=== PATIENT | female | born 1935 | race Caucasian/White ===

== ENCOUNTER 2018-02-14 06:50 | Inpatient (IN) | payer OTHER ==
[~2018-02-14] VITALS: Ht 149.9 cm; Wt 56.8 kg
[~2018-02-14 06:50] MED LIST: ALEN70TA55 OR; AMIO200T33 OR; LOSA100T33 OR; SIMV-13 OR; VERA120T6 OR; WARF2TAB49 OR
[2018-02-14 07:29] LABS: Basophils # (auto) 0.1 uL; Basophils % (auto) 0.8 % (0.0-2.0); Eosinophils # (auto) 0.2 uL; Eosinophils % (auto) 2.2 % (0.0-7.0); Hematocrit 35.2 % (36.0-46.0); Hemoglobin 11.9 g/dL (12.2-16.2); Lymphocytes % (auto) 11.7 % (10.0-50.0); Mean Corpuscular Hemoglobin 28.9 pg (28.0-32.0); Mean Corpuscular Hgb Conc. 33.9 g/dL (32.0-36.0); Mean Corpuscular Volume 85.4 fL (80.0-100.0); Monocytes # (auto) 0.7 uL; Monocytes % (auto) 8.4 % (0.0-12.0); Neutrophils # (auto) 6.9 uL; Neutrophils % (auto) 76.9 % (37.0-80.0); Nucleated Red Blood Cells % 0.1 %; Platelet Count (auto) 184 10^3/uL (140-450); Red Blood Cells 4.12 10^6/uL (4.0-5.20); Red Cell Distribution Width 15.6 % (11.8-14.3); White Blood Cell 8.9 10^3/uL (4.4-10.8)
[2018-02-14 07:45] LABS: INR 2.11 (0.9-1.15); Partial Thromboplastin Time 38.2 sec (23.78-33.04); Prothrombin Time 21.6 sec (9.27-12.13)
[2018-02-14 08:06] LABS: Albumin 3.3 g/dL (3.4-5.0); Alkaline Phosphatase 77 U/L (45-117); Anion Gap 9 (5-15); Aspartate Aminotransferase 19 U/L (15-37); BUN/Creatinine Ratio 22.9; Bilirubin, Total 0.5 mg/dL (0.2-1.0); Blood Urea Nitrogen 36 mg/dL (7-18); Calcium 8.8 mg/dL (8.5-10.1); Carbon Dioxide 26 mmol/L (21-32); Chloride 105 mmol/L (98-107); GFR African American 40 mL/min; GFR Non-African American 33 mL/min; Glucose 119 mg/dL (74-106); Potassium 3.4 mmol/L (3.5-5.1); Sodium 140 mmol/L (136-145); Total Protein 7.5 g/dL (6.4-8.2)
[2018-02-14 08:10] LABS: Alanine Aminotransferase 23 U/L (13-56)
[2018-02-14] MEDS ORDERED: SODIUM CHLORIDE 0.9% 1,000 ML IV SCH (09:04)
[2018-02-14] MEDS ORDERED: ACETAMINOPHEN 500 MG TAB PO PRN (09:15)
[2018-02-14] MEDS ORDERED: PROMETHAZINE HCL 25 MG/ML 1ML IV PRN (09:15)
[2018-02-14] MEDS ORDERED: TEMAZEPAM 15 MG CAP PO PRN (09:15)
[2018-02-14] MEDS ORDERED: DEXTROSE (50%) 50ML SYRG IV PRN (09:15)
[2018-02-14] MEDS ORDERED: traMADol HCL 50 MG TAB PO PRN (09:15)
[2018-02-14] MEDS ORDERED: LACTULOSE 20Gm/30ML SOLN PO PRN (09:15)
[2018-02-14] MEDS ORDERED: MORPHINE SULF INJ 2 MG/ML SYRINGE 1ML IV PRN ×2 (09:15)
[2018-02-14] MEDS ORDERED: LORazepam 0.5 MG TAB PO PRN (09:15)
[2018-02-14] MEDS ORDERED: NITROGLYCERIN 0.4 MG SL TAB SL PRN (09:15)
[2018-02-14 09:31] VITALS: BP 114/56
[2018-02-14] MEDS ORDERED: ASPirin 81 mg TAB PO SCH (10:00)
[2018-02-14] MEDS ORDERED: LOSARTAN POTASSIUM OR SCH (10:00)
[2018-02-14] MEDS ORDERED: METOPROLOL TARTRATE 25 MG TAB PO SCH (10:00)
[2018-02-14] MEDS ORDERED: VERAPAMIL HCL 120 MG OR SCH (10:00)
[2018-02-14] MEDS ORDERED: HYDROC OR SCH (10:00)
[2018-02-14] MEDS ORDERED: AMIODARONE HCL 200 MG TAB PO SCH (10:00)
[2018-02-14] MEDS ORDERED: NITROGLYCERIN 0.2MG/HR TOPICAL PATCH TD SCH (10:00)
[2018-02-14] MEDS ORDERED: PANTOPRAZOLE 40 MG TAB PO SCH (10:00)
[2018-02-14] MEDS ORDERED: POTASSIUM CHL 20 Meq TABLET PO ONE (10:30)
[2018-02-14] MEDS ORDERED: FURO20TA3 PO (10:45)
[2018-02-14] MEDS ORDERED: MECL-87 PO (10:45)
[2018-02-14] MEDS ORDERED: CHOL100055 PO (10:45)
[2018-02-14] MEDS ORDERED: LOSA100T27 PO (10:45)
[2018-02-14] MEDS ORDERED: DIGO1TAB35 PO (10:45)
[2018-02-14] MEDS ORDERED: GLIP2.5T28 PO (10:45)
[2018-02-14] MEDS ORDERED: METO-158 PO (10:45)
[2018-02-14] MEDS ORDERED: ATOR1TAB PO (10:45)
[2018-02-14] MEDS ORDERED: AMLO5TAB2 PO (10:45)
[2018-02-14] MEDS: InsuLIN REG 1unit/0.01ml Soln (100units/ml) SC SCH ×2 (11:30→17:00)
[2018-02-14] MEDS: ACCU-CHEK COMFORT CURVE STRIP VI SCH ×2 (11:55→17:46)
[2018-02-14 13:00] VITALS: BP 124/65
[2018-02-14] MEDS ORDERED: WARFARIN SODIUM 2 MG TAB PO ONE (17:00)
[2018-02-14 17:25] VITALS: BP 129/59
[2018-02-14 17:56] VITALS: BP 114/56
[2018-02-14] MEDS ORDERED: ATORVASTATIN 20 MG TAB PO SCH (22:00)
[2018-02-14] MEDS ORDERED: PATIENTS OWN MEDICATION (Simvastatin 40 MG) OR SCH (22:00)
== END 2018-02-14 19:15 | disposition home health service (06) | DRG 313 ==
LOC: EDBD 06:50 → ER 06:50 → TELE 06:51 → TELE-WESTW 09:51
PROVIDERS: ADMIT Internal Medicine; ATTEND Internal Medicine
DX: R07.89 Other chest pain (principal); I13.0 Hypertensive heart and chronic kidney disease with heart failure and stage 1 through stage 4 chronic kidney disease, or unspecified chronic kidney disease; D63.8 Anemia in other chronic diseases classified elsewhere; E11.21 Type 2 diabetes mellitus with diabetic nephropathy; E11.22 Type 2 diabetes mellitus with diabetic chronic kidney disease; E78.5 Hyperlipidemia, unspecified; I50.9 Heart failure, unspecified; E87.6 Hypokalemia; I48.0 Paroxysmal atrial fibrillation; N18.3 Chronic kidney disease, stage 3 (moderate); Z80.0 Family history of malignant neoplasm of digestive organs; Z80.7 Family history of other malignant neoplasms of lymphoid, hematopoietic and related tissues; Z82.0 Family history of epilepsy and other diseases of the nervous system; Z82.3 Family history of stroke; I25.2 Old myocardial infarction; Z95.0 Presence of cardiac pacemaker; Z98.49 Cataract extraction status, unspecified eye; Z90.49 Acquired absence of other specified parts of digestive tract; Z79.899 Other long term (current) drug therapy; Z79.01 Long term (current) use of anticoagulants; Z79.82 Long term (current) use of aspirin
CPT/HCPCS: 36415; 71045; 80053; 82550; 82962; 83036; 83880; 84443; 84484; 85025; 85610; 85652; 85730; 86141; 93005; 93306

== ENCOUNTER → 2020-04-27 | Day surgery (SDC) | payer OTHER ==
[~2020-04-27] VITALS: Ht 149.9 cm; Wt 53.1 kg
[~2020-04-27] MED LIST changes: +ACCU-CHEK COMFORT CURVE STRIP VI ONE; -ALEN70TA55 OR; -AMIO200T33 OR; +AMLO5TAB15 PO; +ATOR1TAB PO; +BACITRACIN INJ 50000 UNIT VIAL ONE; +BUPIVACAINE 0.25% INJ 50ML VIAL ONE; +CHOL100055 PO; +CLON0.1T PO; +COEN200C11 PO; +DILT60CA PO; +DexAMETHasone SOD PHOS 10MG/1ML VIAL INJ ONE; +ETOMIDATE (2MG/ML) 20ML VIAL IV ONE; +GLIP2.5T28 PO; +GLYCOPYRROLATE 0.2 MG/ML 1ML VIAL ONE; +HEPARIN SODIUM (PORCINE) 5000 UNITS/ML 1ML VIAL ONE; +KETOROLAC TROMETH 30 MG/ML 1ML VIAL IV ONE; +LIDOCAINE 2% (LOCAL ANESTH.) PF 5ml SDV ONE; +LIDOCAINE W/ EPINEPHRINE 1 % INJ 30ML ONE; -LOSA100T33 OR; +LOSA100T33 PO; +METO-158 PO; +MIDAZOLAM HCL 1MG/1ML-2 ML VIAL ONE; +MORPHINE SULFATE 4 MG/ML SYR/VIAL IV PRN; +NALOXONE HCL 0.4 MG/ML VIAL ONE; +NEOSTIGMINE 1 MG/ML INJ (10mg/10ML VIAL) ONE; +NITR0.4S29 SL; +ONDANSETRON HCL 4 MG/2 ML VIAL IV PRN; +ONDANSETRON HCL 4 MG/2 ML VIAL ONE; +PROPOFOL 10 MG/ML 20 ML IV ONE; +ROCURONIUM 10MG/ML 10ML VIAL IV ONE; -SIMV-13 OR; -VERA120T6 OR; +ceFAZolin 1GM/50ML 100 ML IV ONE; +fentaNYL CITRATE 100 MCG/2 ML VL ONE
[2020-04-27 13:00] VITALS: BP 159/74
== END | disposition home or self-care (01) ==
LOC: SUR 06:48
PROVIDERS: ATTEND Surgery
DX: K40.90 Unilateral inguinal hernia, without obstruction or gangrene, not specified as recurrent (principal); I48.91 Unspecified atrial fibrillation; E11.22 Type 2 diabetes mellitus with diabetic chronic kidney disease; I12.9 Hypertensive chronic kidney disease with stage 1 through stage 4 chronic kidney disease, or unspecified chronic kidney disease; N18.9 Chronic kidney disease, unspecified; Z88.8 Allergy status to other drugs, medicaments and biological substances; Z96.89 Presence of other specified functional implants; Z95.810 Presence of automatic (implantable) cardiac defibrillator; Z79.899 Other long term (current) drug therapy; Z98.890 Other specified postprocedural states; Z20.828 Contact with and (suspected) exposure to other viral communicable diseases
CPT/HCPCS: 49505; 82962; C1781; J0690; J1100; J1644; J1885; J2001; J2250; J2310; J2405; J2704; J3010; J3490; U0003

== ENCOUNTER 2022-09-11 11:42 | Inpatient (IN) | payer OTHER ==
[~2022-09-11] VITALS: Ht 149.9 cm; Wt 59.8 kg
[~2022-09-11 11:42] MED LIST changes: -ACCU-CHEK COMFORT CURVE STRIP VI ONE; +AMLO-489 PO; -AMLO5TAB15 PO; +ATOR-47 PO; -ATOR1TAB PO; -BACITRACIN INJ 50000 UNIT VIAL ONE; -BUPIVACAINE 0.25% INJ 50ML VIAL ONE; -DexAMETHasone SOD PHOS 10MG/1ML VIAL INJ ONE; -ETOMIDATE (2MG/ML) 20ML VIAL IV ONE; -GLYCOPYRROLATE 0.2 MG/ML 1ML VIAL ONE; -HEPARIN SODIUM (PORCINE) 5000 UNITS/ML 1ML VIAL ONE; -KETOROLAC TROMETH 30 MG/ML 1ML VIAL IV ONE; -LIDOCAINE 2% (LOCAL ANESTH.) PF 5ml SDV ONE; -LIDOCAINE W/ EPINEPHRINE 1 % INJ 30ML ONE; -MIDAZOLAM HCL 1MG/1ML-2 ML VIAL ONE; -MORPHINE SULFATE 4 MG/ML SYR/VIAL IV PRN; -NALOXONE HCL 0.4 MG/ML VIAL ONE; -NEOSTIGMINE 1 MG/ML INJ (10mg/10ML VIAL) ONE; -ONDANSETRON HCL 4 MG/2 ML VIAL IV PRN; -ONDANSETRON HCL 4 MG/2 ML VIAL ONE; -PROPOFOL 10 MG/ML 20 ML IV ONE; -ROCURONIUM 10MG/ML 10ML VIAL IV ONE; -ceFAZolin 1GM/50ML 100 ML IV ONE; -fentaNYL CITRATE 100 MCG/2 ML VL ONE
[2022-09-11] MEDS ORDERED: ACETAMINOPHEN 325 MG TAB PO ONE (13:30)
[2022-09-11 13:50] LABS: Basophils # (auto) 0 10 ^3/uL (0-0.2); Eosinophils # (auto) 0.1 10 ^3/uL (0-0.8); Mean Corpuscular Hemoglobin 26.2 pg (28.0-32.0); Monocytes # (auto) 0.7 10 ^3/uL (0-1.3); Monocytes % (auto) 6.7 % (0.0-12.0)
[2022-09-11 13:52] LABS: Basophils % (auto) 0.1 % (0.0-2.0); Eosinophils % (auto) 0.9 % (0.0-7.0); Hematocrit 39.1 % (36.0-46.0); Hemoglobin 12.7 g/dL (12.2-16.2); Lymphocytes % (auto) 9.1 % (10.0-50.0); Mean Corpuscular Hgb Conc. 32.5 g/dL (32.0-36.0); Mean Corpuscular Volume 80.6 fL (80.0-100.0); Neutrophils # (auto) 9.1 10 ^3/uL (1.6-8.6); Neutrophils % (auto) 83.2 % (37.0-80.0); Nucleated Red Blood Cells % 0.1 %; Red Blood Cells 4.86 10^6/uL (4.0-5.20); Red Cell Distribution Width 16.9 % (11.8-14.3); White Blood Cell 10.9 10^3/uL (4.4-10.8)
[2022-09-11 14:06] LABS: INR 3.41 (0.9-1.15); Partial Thromboplastin Time 39.9 sec (24.6-33.4)
[2022-09-11 14:10] LABS: Albumin 3.4 g/dL (3.4-5.0); Calcium 9.4 mg/dL (8.5-10.1); Magnesium 2.1 mg/dL (1.6-2.6); Potassium 3.2 mmol/L (3.5-5.1)
[2022-09-11 14:14] LABS: Bilirubin, Total 0.3 mg/dL (0.2-1.0); Total Protein 7.4 g/dL (6.4-8.2)
[2022-09-11] MEDS ORDERED: ONDANSETRON HCL 4 MG/2 ML VIAL IV PRN (20:00)
[2022-09-11] MEDS ORDERED: DOCUSATE SOD 100 MG CAP PO PRN (20:00)
[2022-09-11] MEDS ORDERED: NITROGLYCERIN 0.4 MG SL TAB SL PRN (20:00)
[2022-09-11] MEDS ORDERED: SODIUM CHLORIDE 0.9% 1,000 ML IV ONE (20:00)
[2022-09-11] MEDS ORDERED: MORPHINE SULFATE INJ 2 MG/ml SYRG IV PRN (20:00)
[2022-09-11] MEDS ORDERED: DEXTROSE (50%) 50ML SYRG IV PRN (20:45)
[2022-09-11] MEDS ORDERED: POTASSIUM CHL 20 Meq TABLET PO ONE (21:45)
[2022-09-11] MEDS: ACCU-CHEK COMFORT CURVE STRIP VI SCH (22:10)
[2022-09-11] MEDS: InsuLIN REG 1unit/0.01ml Soln (100units/ml) SC SCH (22:14)
[2022-09-11] MEDS: ATORVASTATIN 20 MG TAB PO SCH (22:16)
[2022-09-11] MEDS: METOPROLOL TARTRATE 50 MG TAB PO SCH (22:16)
[2022-09-11] MEDS: FUROSEMIDE 20 MG/2 ML VIAL IV SCH (22:16)
[2022-09-12] MEDS: HYDROcodone-ACET 5/325MG TAB PO PRN ×2 (01:04→15:22)
[2022-09-12 01:14] VITALS: BP 165/66
[2022-09-12 04:38] VITALS: BP 140/69
[2022-09-12] MEDS: FUROSEMIDE 20 MG/2 ML VIAL IV SCH ×2 (06:20→17:29)
[2022-09-12] MEDS: InsuLIN REG 1unit/0.01ml Soln (100units/ml) SC SCH ×4 (06:33→21:37)
[2022-09-12] MEDS: ACCU-CHEK COMFORT CURVE STRIP VI SCH ×4 (06:33→21:16)
[2022-09-12 06:36] LABS: Albumin 2.8 g/dL (3.4-5.0); Calcium 8.3 mg/dL (8.5-10.1); Potassium 3.6 mmol/L (3.5-5.1)
[2022-09-12 06:38] LABS: Basophils # (auto) 0 10 ^3/uL (0-0.2); Basophils % (auto) 0.3 % (0.0-2.0); Eosinophils # (auto) 0.1 10 ^3/uL (0-0.8); Eosinophils % (auto) 1.5 % (0.0-7.0); Hematocrit 33.9 % (36.0-46.0); Lymphocytes # (auto) 0.9 10 ^3/uL (0.4-5.4); Lymphocytes % (auto) 10.1 % (10.0-50.0); Mean Corpuscular Hemoglobin 26.3 pg (28.0-32.0); Mean Corpuscular Hgb Conc. 32.5 g/dL (32.0-36.0); Mean Corpuscular Volume 81.1 fL (80.0-100.0); Monocytes # (auto) 0.7 10 ^3/uL (0-1.3); Monocytes % (auto) 7.7 % (0.0-12.0); Neutrophils # (auto) 6.8 10 ^3/uL (1.6-8.6); Neutrophils % (auto) 80.4 % (37.0-80.0); Nucleated Red Blood Cells % 0.1 %; Red Blood Cells 4.18 10^6/uL (4.0-5.20); Red Cell Distribution Width 16.4 % (11.8-14.3); White Blood Cell 8.5 10^3/uL (4.4-10.8)
[2022-09-12 06:41] LABS: BUN/Creatinine Ratio 39.2; Bilirubin, Total 0.5 mg/dL (0.2-1.0); Total Protein 5.9 g/dL (6.4-8.2)
[2022-09-12] MEDS: glipiZIDE 5 MG TAB PO SCH (08:54)
[2022-09-12] MEDS: METOPROLOL TARTRATE 50 MG TAB PO SCH ×2 (08:54→21:15)
[2022-09-12] MEDS: PANTOPRAZOLE 40 MG/10 ML VIAL INJ IV SCH (08:55)
[2022-09-12 09:00] VITALS: BP 160/77
[2022-09-12] MEDS ORDERED: PATIENTS OWN MEDICATION (Atorvastatin Calcium 1 TAB) PO SCH (10:00)
[2022-09-12] MEDS ORDERED: dilTIAZem 120MG ER CAP PO SCH (10:00)
[2022-09-12] MEDS ORDERED: cloNIDine HCL 0.1 MG TAB PO PRN (11:15)
[2022-09-12 13:00] VITALS: BP 153/59
[2022-09-12 17:00] VITALS: BP 162/61
[2022-09-12] MEDS: ATORVASTATIN 20 MG TAB PO SCH (21:15)
[2022-09-12 22:00] VITALS: BP 145/47
[2022-09-12] MEDS: ACETAMINOPHEN 325 MG TAB PO PRN (22:53)
[2022-09-13 05:00] VITALS: BP 124/52
[2022-09-13] MEDS: InsuLIN REG 1unit/0.01ml Soln (100units/ml) SC SCH ×2 (06:26→12:36)
[2022-09-13] MEDS: ACCU-CHEK COMFORT CURVE STRIP VI SCH ×2 (06:26→11:40)
[2022-09-13] MEDS: FUROSEMIDE 20 MG/2 ML VIAL IV SCH (06:28)
[2022-09-13 09:00] VITALS: BP 125/52
[2022-09-13] MEDS: glipiZIDE 5 MG TAB PO SCH (09:04)
[2022-09-13] MEDS: METOPROLOL TARTRATE 50 MG TAB PO SCH (09:05)
[2022-09-13] MEDS: PANTOPRAZOLE 40 MG/10 ML VIAL INJ IV SCH (09:06)
[2022-09-13] MEDS: ACETAMINOPHEN 325 MG TAB PO PRN (09:06)
[2022-09-13] MEDS ORDERED: LOSARTAN POTASSIUM 50 MG TAB PO SCH (10:00)
[2022-09-13 13:00] VITALS: BP 123/55
== END 2022-09-13 17:19 | disposition home or self-care (01) | DRG 69 ==
LOC: ER 11:42 → TELE 20:20 → TELE-EAST 23:43
PROVIDERS: ADMIT Nurse Practitioner Family; ATTEND Internal Medicine
DX: G45.9 Transient cerebral ischemic attack, unspecified (principal); E87.0 Hyperosmolality and hypernatremia; I13.0 Hypertensive heart and chronic kidney disease with heart failure and stage 1 through stage 4 chronic kidney disease, or unspecified chronic kidney disease; N17.9 Acute kidney failure, unspecified; I48.20 Chronic atrial fibrillation, unspecified; D68.9 Coagulation defect, unspecified; S00.93XA Contusion of unspecified part of head, initial encounter; E11.22 Type 2 diabetes mellitus with diabetic chronic kidney disease; E87.6 Hypokalemia; M25.562 Pain in left knee; M25.561 Pain in right knee; Y93.01 Activity, walking, marching and hiking; N18.9 Chronic kidney disease, unspecified; W01.0XXA Fall on same level from slipping, tripping and stumbling without subsequent striking against object, initial encounter; Z20.822 Contact with and (suspected) exposure to COVID-19; E78.5 Hyperlipidemia, unspecified; I25.10 Atherosclerotic heart disease of native coronary artery without angina pectoris; I50.9 Heart failure, unspecified; S00.81XA Abrasion of other part of head, initial encounter; Z80.0 Family history of malignant neoplasm of digestive organs; Z80.7 Family history of other malignant neoplasms of lymphoid, hematopoietic and related tissues; Z82.0 Family history of epilepsy and other diseases of the nervous system; Z82.3 Family history of stroke; I25.2 Old myocardial infarction; Z95.0 Presence of cardiac pacemaker; Z79.899 Other long term (current) drug therapy; Z90.49 Acquired absence of other specified parts of digestive tract; Y92.89 Other specified places as the place of occurrence of the external cause; Y99.8 Other external cause status; Z79.84 Long term (current) use of oral hypoglycemic drugs
CPT/HCPCS: 36415; 70450; 71045; 72125; 80053; 82962; 83735; 83880; 84484; 85025; 85610; 85730; 87426; 95819; 96360; 96361; 96372; 99291; C9113; G0378; J1815